=== PATIENT | male | born 1990 | race Caucasian/White ===

== ENCOUNTER 2016-03-03 23:17 | Emergency (ER) | payer SELFPAY ==
[2016-03-03] MEDS ORDERED: LORazepam INJ* 2 MG/ML 1 ML VIAL ONE (23:21)
[2016-03-03] MEDS ORDERED: Haloperidol INJ IV/IM* 5 MG/ML AMP ONE (23:21)
[2016-03-03] MEDS ORDERED: diPHENhydraMINE IV* 50 MG/ML 1 ml VIAL (BENADRYL) ONE (23:21)
[2016-03-03] MEDS ORDERED: LORazepam INJ* 2 MG/ML 1 ML VIAL IM ONE (23:26)
[2016-03-03] MEDS ORDERED: diPHENhydraMINE IV* 50 MG/ML 1 ml VIAL (BENADRYL) IM ONE (23:26)
[2016-03-03] MEDS ORDERED: Haloperidol INJ IV/IM* 5 MG/ML AMP IM ONE (23:26)
[2016-03-04 00:15] LABS: Hematocrit 46 % (42-52); Hemoglobin 15.6 g/dl (14.0-18.0); Mean Corpuscular HGB Conc 34 g/dl (31-36); Mean Corpuscular Hemoglobin 32 pg (27-31); Mean Corpuscular Volume 93 fL (80-94); Mean Platelet Volume 8 um3 (7.4-10.4); Red Blood Count 4.94 10^6/ul (4.0-5.4); Red Cell Distribution Width 13 % (10.5-15); White Blood Count 6.1 10^3/ul (3.5-10.8)
[2016-03-04 00:23] LABS: ALT 11 U/L (7-52); AST 21 U/L (13-39); Albumin 4.6 g/dL (3.2-5.2); Alkaline Phosphatase 70 U/L (34-104); Anion Gap 10 mmol/L (2-11); BUN/Creatinine Ratio 8.4 (8-20); Blood Urea Nitrogen 8 mg/dL (6-24); CO2 Carbon Dioxide 23 mmol/L (22-32); Calcium 9.2 mg/dL (8.6-10.3); Chloride 106 mmol/L (101-111); EGFR African American 125.3 (>60); EGFR Non-African American 97.4 (>60); Globulin 2.8 g/dL (2-4); Glucose 96 mg/dL (70-100); Potassium 3.3 mmol/L (3.5-5.0); Sodium 139 mmol/L (133-145); Total Protein 7.4 g/dL (6.4-8.9)
[2016-03-04 00:38] LABS: Acetaminophen < 15 mcg/mL; Alcohol 290 mg/dL (<10); Salicylate < 2.50 mg/dL (<30)
[2016-03-04 00:48] LABS: TSH (Thyroid Stimulating Horm) 1.05 mcIU/mL (0.34-5.60)
--- NOTE | 2016-03-04 01:00 | ED ---
Nafisa Morales Anna, scribed for Ifrah Jerez MD on 03/03/16 at 2328 . Substance Abuse/Use - HPI Summary HPI Summary: Patient is a 25 y/o male BIBA to [facility] presenting with substance use. Per EMS, the patient was found unconscious in a ditch. He regained consciousness and has been inconsolable, spitting at EMS and screaming. Persons in the area reported that he was walking in the street and has been known to drink. No known trauma. LEVEL 5 CAVEAT UNABLE TO OBTAIN FULL HISTORY DUE TO ALTERED STATUS. - History Of Current Complaint Stated Complaint: 2208 Hx Obtained From: EMS Hx From Patient Unobtainable Due To: Other - LEVEL 5 CAVEAT UNABLE TO OBTAIN FULL HISTORY DUE TO ALTERED STATUS. - Allergies/Home Medications Allergies/Adverse Reactions: Allergies Allergy/AdvReac Type Severity Reaction Status Date / Time No Known Allergies Allergy Verified 07/06/12 10:53 PMH/Surg Hx/FS Hx/Imm Hx - Social History Alcohol Use: Daily Substance Use Type: Reports: None Smoking Status (MU): Current Every Day Smoker - Additional Comments History Additional Comments: LEVEL 5 CAVEAT UNABLE TO OBTAIN FULL HISTORY DUE TO ALTERED STATUS. Review of Systems - ROS Summary Review of Systems Summary: LEVEL 5 CAVEAT UNABLE TO OBTAIN FULL HISTORY DUE TO ALTERED STATUS. All Other Systems Reviewed And Are Negative: No Physical Exam - Summary Physical Exam Summary: Moving all extremities. Screaming and agitated with slurred speech upon initial visit. B52 at this time. Triage Information Reviewed: Yes Vital Signs On Initial Exam: Temp Pulse Resp BP Pulse Ox 99.6 F 118 24 162/54 97 03/03/16 23:28 03/03/16 23:28 03/03/16 23:28 03/03/16 23:28 03/03/16 23:28 Vital Signs Reviewed: Yes Appearance: Positive: Well-Appearing - sleeping upon exam following medication, No Pain Distress Skin: Positive: Warm, Skin Color Reflects Adequate Perfusion, Dry Eyes: Positive: Other: - pinpoint pupils following medication ENT: Positive: Pharynx normal, TMs normal Neck: Positive: Supple, Nontender Respiratory/Lung Sounds: Positive: Clear to Auscultation, Breath Sounds Present. Negative: Rales, Rhonchi, Wheezes Cardiovascular: Positive: RRR, Other - no gallops. Negative: Murmur, Rub Musculoskeletal: Positive: Strength/ROM Intact. Negative: Edema Left, Edema Right Neurological: Positive: Sensory/Motor Intact Psychiatric: Positive: Affect/Mood Appropriate Diagnostics - Vital Signs Vital Signs Temp Pulse Resp BP Pulse Ox 03/03/16 23:37 16 03/03/16 23:28 99.6 F 118 24 162/54 97 - Laboratory Lab Results: Lab Results 03/03/16 03/03/16 Range/Units 23:55 23:55 WBC 6.1 (3.5-10.8) 10^3/ul RBC 4.94 (4.0-5.4) 10^6/ul Hgb 15.6 (14.0-18.0) g/dl Hct 46 (42-52) % MCV 93 (80-94) fL MCH 32 H (27-31) pg MCHC 34 (31-36) g/dl RDW 13 (10.5-15) % Plt Count 191 (150-450) 10^3/ul MPV 8 (7.4-10.4) um3 Neut % (Auto) 58.4 (38-83) % Lymph % (Auto) 30.9 (25-47) % [place] % (Auto) 5.5 (1-9) % Eos % (Auto) 4.6 (0-6) % Baso % (Auto) 0.6 (0-2) % Absolute Neuts (auto) 3.6 (1.5-7.7) 10^3/ul Absolute Lymphs (auto) 1.9 (1.0-4.8) 10^3/ul Absolute Monos (auto) 0.3 (0-0.8) 10^3/ul Absolute Eos (auto) 0.3 (0-0.6) 10^3/ul Absolute Basos (auto) 0 (0-0.2) 10^3/ul Absolute Nucleated RBC 0 10^3/ul Nucleated RBC % 0.1 Sodium 139 (133-145) mmol/L Potassium 3.3 L (3.5-5.0) mmol/L Chloride 106 (101-111) mmol/L Carbon Dioxide 23 (22-32) mmol/L Anion Gap 10 (2-11) mmol/L BUN 8 (6-24) mg/dL Creatinine 0.95 (0.67-1.17) mg/dL Est GFR ( Amer) 125.3 (>60) Est GFR (Non-Af Amer) 97.4 (>60) BUN/Creatinine Ratio 8.4 (8-20) Glucose 96 (70-100) mg/dL Calcium 9.2 (8.6-10.3) mg/dL Total Bilirubin 0.30 (0.2-1.0) mg/dL AST 21 (13-39) U/L ALT 11 (7-52) U/L Alkaline Phosphatase 70 (34-104) U/L Total Protein 7.4 (6.4-8.9) g/dL Albumin 4.6 (3.2-5.2) g/dL Globulin 2.8 (2-4) g/dL Albumin/Globulin Ratio 1.6 (1-3) TSH 1.05 (0.34-5.60) mcIU/mL Salicylates < 2.50 (<30) mg/dL Acetaminophen < 15 mcg/mL Serum Alcohol 290 H (<10) mg/dL Result Diagrams: 03/03/16 23:55 03/03/16 23:55 Lab Statement: Any lab studies that have been ordered have been reviewed, and results considered in the medical decision making process. - CT Head CT CT Interpretation: No Acute Changes CT Interpretation Completed By: Radiologist Course/Dx - Course Course Of Treatment: 25 yo male apparently known to be a drinker found in a ditch. Upon arrival pt was very agitated yelling moving all extremities. He was given haldol, ativan and benadryl and is now sleeping. Labs show alcohol of 290 ct brain neg. no signs of trauma seen on body. Plan will be for discharge in the am once awake and ambulating - Diagnoses Provider Diagnoses: Alcohol intoxication Discharge - Discharge Plan Condition: Stable Disposition: HOME Patient Education Materials: Abuse of Alcohol (ED) The documentation as recorded by the Nafisa aaron Anna accurately reflects the service I personally performed and the decisions made by me, Ifrah Jerez MD.
[2016-03-04 05:30] VITALS: BP 103/40
--- NOTE | 2016-03-04 07:41 | RAD ---
INDICATION: Intoxicated possible loss of consciousness. COMPARISON: Comparison is made with a prior CT brain from July 25, 2009. TECHNIQUE: Contiguous axial sections of the brain were obtained from the skull base to the vertex without contrast. FINDINGS: The ventricles, cisterns and sulci are within normal limits. No significant focal abnormality or mass effect is seen. There is no evidence for hemorrhage. No significant focal osseous abnormality is seen. The visualized portion of the paranasal sinuses and mastoid air cells appear clear. IMPRESSION: NO EVIDENCE FOR ACUTE INTRACRANIAL ABNORMALITY.
== END 2016-03-04 08:37 | disposition home or self-care (01) ==
LOC: ED 23:17
DX: F10.129 Alcohol abuse with intoxication, unspecified (principal); Y90.8 Blood alcohol level of 240 mg/100 ml or more; F17.200 Nicotine dependence, unspecified, uncomplicated
CPT/HCPCS: 36415; 70450; 80053; 80320; 80329; 84443; 85025; 96372; 99285; G0480; J1200; J1630; J2060